=== PATIENT | female | born 1960 | race Caucasian/White ===

== ENCOUNTER 2024-11-22 08:42 | Emergency (ER) | payer BC ==
[~2024-11-22] VITALS: Ht 157.5 cm; Wt 81.6 kg
[~2024-11-22 08:42] MED LIST: AZITHROMYCIN250 MG PO; AZITHROMYCIN500 MG PO; CALCIUM 500 + D; CIPROFLOXACN500 MG PO; DIFLUCAN150 MG PO; ESTRADIOL0.5 MG PO; ESTRADIOL1 MG PO; FLAGYL500 MG PO; FLEXERIL OR; FLEXERIL5 M1 PO; HAIR/SKIN/ PO; INDOCIN SR75 MG OR; KENALOG15 GM/TUBE EX; LORTAB5 OR; METROGEL VAG0.75 % VA; METRONIDAZOL500 MG PO; MOBIC15 M1 OR; NAPROSYN500 MG OR; NO HOME MEDS; OB COMPLET2 OR; ULTRAM50 MG PO; [UNRECOGNIZED DRUG - OTHER]
[2024-11-22 08:48] VITALS: BP 150/70
[2024-11-22 09:13] LABS: BASO% 0.8 % (0-3); EOS% 1.2 % (0-8); HEMATOCRIT 39.6 % (37.0-47.0); HEMOGLOBIN 12.9 g/dl (12.0-16.0); IMMATURE GRANULOCYTES 0.2 % (0.0-5.0); LYMPH% 23.2 % (15-41); MEAN CELL VOLUME 92.3 fL CALC (80.0-100.0); MEAN CORPUSCULAR HGB 30.1 pG CALC (26.0-32.0); MEAN CORPUSCULAR HGB CONC 32.6 g/dL CAL (32.0-36.0); MONO% 13.8 % (2-13); NEUT# 3.13 thou/uL (2.00-7.15); NEUT% 60.8 % (42-76); RED BLOOD COUNT 4.29 mill/uL (4.20-5.60); RED CELL DISTRI WIDTH 12.9 % (11.5-15.5)
[2024-11-22 11:49] VITALS: BP 135/68
[2024-11-22 12:00] VITALS: BP 139/72
[2024-11-22 12:01] LABS: BILIRUBIN, TOTAL 0.8 mg/dL (0.02-1.3); CREATININE 0.8 mg/dL (0.5-1.0); POTASSIUM 3.7 mmol/l (3.5-5.1); TOTAL PROTEIN 6.7 g/dL (6.3-8.2)
[2024-11-22 12:15] VITALS: BP 140/73
[2024-11-22] MEDS ORDERED: DOXYCYCLINE100 MG PO (12:21)
[2024-11-22] MEDS ORDERED: CHERATUSSIN PO (12:21)
[2024-11-22 12:41] VITALS: BP 140/73
== END 2024-11-22 12:43 | disposition home or self-care (01) | DRG 153 ==
LOC: ED 08:42
PROVIDERS: Family Medicine
DX: J06.9 Acute upper respiratory infection, unspecified (principal)